=== PATIENT | male | born 1975 | race Two or more races ===

== ENCOUNTER 2019-10-09 11:44 | Inpatient (IN) | payer SELFPAY ==
[~2019-10-09] VITALS: Ht 182.9 cm; Wt 85.5 kg
[2019-10-09] MEDS ORDERED: SODIUM CHLORIDE 0.9% 1,000 ML IV ONE ×2 (12:23→16:15)
[2019-10-09] MEDS ORDERED: dilTIAZem 25 MG/5 ML VIAL IV ONE ×2 (12:27→12:30)
[2019-10-09] MEDS ORDERED: THIAMINE 100mg/ml INJ (200mg/2ml VIAL) IV ONE (12:30)
[2019-10-09] MEDS ORDERED: ASPirin 81 mg TAB PO ONE (12:30)
[2019-10-09] MEDS ORDERED: dilTIAZem 125mg/125ml BAG KIT 125 ML IV ONE (12:30)
[2019-10-09] MEDS ORDERED: LORazepam 2MG/ML-1ML VIAL ONE (12:33)
[2019-10-09] MEDS ORDERED: LORazepam 2MG/ML-1ML VIAL IV ONE (12:45)
[2019-10-09 13:15] LABS: Basophils # (auto) 0 10 ^3/uL (0-0.2); Basophils % (auto) 0.2 % (0.0-2.0); Lymphocytes # (auto) 2.5 10 ^3/uL (0.4-5.4); Monocytes # (auto) 0.9 10 ^3/uL (0-1.3); Nucleated Red Blood Cells % 0.1 %; Red Blood Cells 4.63 10^6/uL (4.5-5.90); White Blood Cell 7.1 10^3/uL (4.4-10.8)
[2019-10-09 13:18] LABS: Eosinophils # (auto) 0.2 10 ^3/uL (0-0.8); Eosinophils % (auto) 2.2 % (0.0-7.0); Hematocrit 37.7 % (41.0-53.0); Hemoglobin 12.3 g/dL (13.5-17.5); Lymphocytes % (auto) 35.8 % (10.0-50.0); Mean Corpuscular Hemoglobin 26.6 pg (28.0-32.0); Mean Corpuscular Hgb Conc. 32.7 g/dL (32.0-36.0); Mean Corpuscular Volume 81.5 fL (80.0-100.0); Monocytes % (auto) 12.6 % (0.0-12.0); Neutrophils # (auto) 3.5 10 ^3/uL (1.6-8.6); Neutrophils % (auto) 49.2 % (37.0-80.0); Platelet Count (auto) 191 10^3/uL (140-450); Red Cell Distribution Width 15.8 % (11.8-14.3)
[2019-10-09 13:34] LABS: INR 1.24 (0.9-1.15); Partial Thromboplastin Time 28.5 sec (23.0-31.2)
[2019-10-09 13:35] LABS: Albumin 3.4 g/dL (3.4-5.0); Anion Gap 10 (5-15); Blood Urea Nitrogen 16 mg/dL (7-18); Calcium 8.5 mg/dL (8.5-10.1); Carbon Dioxide 20 mmol/L (21-32); Chloride 110 mmol/L (98-107); GFR African American 136 mL/min; GFR Non-African American 112 mL/min; Glucose 158 mg/dL (74-106); Potassium 3.5 mmol/L (3.5-5.1); Sodium 140 mmol/L (136-145)
[2019-10-09 13:49] LABS: Alanine Aminotransferase 31 U/L (16-61); Alkaline Phosphatase 165 U/L (45-117); Aspartate Aminotransferase 30 U/L (15-37); Bilirubin, Total 1.9 mg/dL (0.2-1.0)
[2019-10-09] MEDS ORDERED: MORPHINE SULF INJ 2 MG/ML SYRINGE 1ML IV PRN ×3 (15:15→16:30)
[2019-10-09] MEDS ORDERED: NITROGLYCERIN 0.4 MG SL TAB SL PRN ×2 (15:15→16:30)
[2019-10-09] MEDS ORDERED: METOPROLOL TARTRATE 1MG/1ML-5ML VIAL IV ONE ×2 (15:37→15:45)
[2019-10-09] MEDS ORDERED: PROPRANOLOL HCL 20 MG TAB ONE (15:37)
[2019-10-09] MEDS ORDERED: PROPRANOLOL HCL 20 MG TAB PO ONE ×2 (15:45)
[2019-10-09] MEDS ORDERED: ADENOSINE 6 MG/2 ML INJ IV ONE ×2 (15:45)
[2019-10-09] MEDS ORDERED: HYDROCORTISONE SOD SUCC 100 MG/2ML INJ VIAL IV ONE (16:30)
[2019-10-09] MEDS ORDERED: ONDANSETRON HCL 4 MG/2 ML VIAL IV PRN (16:30)
[2019-10-09] MEDS ORDERED: methIMAzole 5 MG TAB PO ONE (16:30)
[2019-10-09] MEDS ORDERED: CHOLESTYRAMINE 4 GM POWDER PO ONE (16:30)
[2019-10-09] MEDS ORDERED: HYDROcodone-ACET 5/325MG TAB PO PRN (16:30)
[2019-10-09] MEDS ORDERED: ACETAMINOPHEN 325 MG TAB PO PRN (16:30)
[2019-10-09] MEDS ORDERED: ALUM & MAG HYDROX-SIMETH LIQ(MAALOX) 30 ML PO PRN (16:30)
[2019-10-09] MEDS ORDERED: DOCUSATE SOD 100 MG CAP PO PRN (16:30)
[2019-10-09] MEDS ORDERED: LORazepam 0.5 MG TAB PO PRN (16:30)
[2019-10-09 16:49] LABS: Cholesterol 74 mg/dL (< 200); Triglycerides 52 mg/dL (< 150)
[2019-10-09 16:52] LABS: HDL Cholesterol 35 mg/dL (40-59); LDL Cholesterol 39 mg/dL (< 100)
[2019-10-09] MEDS: SODIUM CHLORIDE 0.9% 1,000 ML IV SCH (17:49)
[2019-10-09 19:00] LABS: Urine Bacteria NONE SEEN /hpf (None Seen); Urine Blood Negative /uL (Negative); Urine Hyaline Cast FEW /lpf (0 - 2); Urine Mucus FEW (None Seen); Urine Specific Gravity 1.026 (1.001-1.035); Urine WBC 18 /hpf (0 - 3)
[2019-10-09 19:07] LABS: Alcohol, Urine < 3.0 mg/dL (0-10); Amphetamine Screen, Urine NEGATIVE (NEGATIVE); Barbiturate Scree,Urine NEGATIVE (NEGATIVE); Benzodiazephine Screen, Urine NEGATIVE (NEGATIVE); Cannabinoid Screen, Urine POSITIVE (NEGATIVE); Cocaine Screen, Urine NEGATIVE (NEGATIVE); Phencyclidine Screen, Urine NEGATIVE (NEGATIVE)
[2019-10-09 19:14] LABS: Opiate Scree,Urine NEGATIVE (NEGATIVE)
[2019-10-09 20:43] VITALS: BP 135/86
--- NOTE | 2019-10-09 20:45 | NUR ---
Telemetry admit from ER CHAKA ARGUETA admitted to Telemetry unit after SBAR received. Patient oriented to Audrey Jesus RN primary RN, unit, room, bed, and unit policies regarding patient care and visiting hours. Patient now on continuous telemetry monitoring, tele box # [id number] and telemetry reading on arrival to unit is Afib. Patient placed on bedside oxygen at 2 Lpm/NC, weighed by bedscale and encouraged to call if they need something. All questions and concerns addressed, patient verbalized understanding, will continue to monitor Note: []
[2019-10-09] MEDS: HYDROCORTISONE SOD SUCC 100 MG/2ML INJ VIAL IV SCH (21:59)
[2019-10-09 22:00] VITALS: BP 135/86
[2019-10-09] MEDS: CHOLESTYRAMINE 4 GM POWDER PO SCH (22:00)
--- NOTE | 2019-10-10 00:30 | NUR ---
Patient sleeping at this time, respirations even and unlabored. Endorsed care to ROBERTO Garcia
--- NOTE | 2019-10-10 00:38 | NUR ---
Received report from Danay to assume care.
--- NOTE | 2019-10-10 05:52 | NUR ---
EKG DONE ORDERED, RESULT IN THE CHART.
[2019-10-10 05:59] VITALS: BP 131/98
[2019-10-10] MEDS: CHOLESTYRAMINE 4 GM POWDER PO SCH ×4 (06:15→22:06)
[2019-10-10] MEDS: HYDROCORTISONE SOD SUCC 100 MG/2ML INJ VIAL IV SCH ×3 (06:15→22:08)
[2019-10-10] MEDS: SODIUM CHLORIDE 0.9% 1,000 ML IV SCH (06:16)
--- NOTE | 2019-10-10 06:30 | NUR ---
MD Called/paged José Blackwood. called re:heart rate of patient always above 120, it goes down below 120, then goes up to 130S. . Waiting for call back. Continue care.
--- NOTE | 2019-10-10 07:00 | NUR ---
Care report given to Karis Barrientos and told to follow-up to the hospital regarding heart rate always above 120.
[2019-10-10 07:14] LABS: Basophils # (auto) 0 10 ^3/uL (0-0.2); Basophils % (auto) 0.1 % (0.0-2.0); Eosinophils # (auto) 0 10 ^3/uL (0-0.8); Eosinophils % (auto) 0.1 % (0.0-7.0); Hematocrit 36.2 % (41.0-53.0); Hemoglobin 11.9 g/dL (13.5-17.5); Lymphocytes # (auto) 1.4 10 ^3/uL (0.4-5.4); Lymphocytes % (auto) 27.2 % (10.0-50.0); Mean Corpuscular Hemoglobin 27.1 pg (28.0-32.0); Mean Corpuscular Volume 82.1 fL (80.0-100.0); Monocytes # (auto) 0.3 10 ^3/uL (0-1.3); Monocytes % (auto) 6.6 % (0.0-12.0); Neutrophils # (auto) 3.4 10 ^3/uL (1.6-8.6); Nucleated Red Blood Cells % 0.1 %; Platelet Count (auto) 182 10^3/uL (140-450); Red Blood Cells 4.41 10^6/uL (4.5-5.90); Red Cell Distribution Width 16.2 % (11.8-14.3); White Blood Cell 5.2 10^3/uL (4.4-10.8)
[2019-10-10 07:35] LABS: INR 1.3 (0.9-1.15)
--- NOTE | 2019-10-10 07:35 | NUR ---
Opening Note Received report from assembler 1st shift RN. Patient is awake, alert and oriented x4. Patient is on room air, respirations even and unlabored. Patient denies pain at this time. Reviewed plan of care with patient, patient verbalized understanding. Bed in low and locked position, call light within reach. Will continue to monitor Q1 hour and PRN.
[2019-10-10 07:54] LABS: Potassium 4.1 mmol/L (3.5-5.1)
[2019-10-10] MEDS: methIMAzole 5 MG TAB PO SCH (08:02)
[2019-10-10 08:06] LABS: BUN/Creatinine Ratio 28.2; Bilirubin, Total 1.2 mg/dL (0.2-1.0); Calcium 8.1 mg/dL (8.5-10.1); Magnesium 2.1 mg/dL (1.6-2.6); Total Protein 6.3 g/dL (6.4-8.2)
[2019-10-10 09:00] VITALS: BP 142/90
--- NOTE | 2019-10-10 09:00 | NUR ---
JORGE L Andrade at station DIVISIONAL HUMAN RESOURCES DIRECTOR updated on patients increased heart rate. Will continue to monitor Q1 hour and PRN.
[2019-10-10] MEDS ORDERED: ATENOLOL 50 MG TAB PO SCH (10:00)
[2019-10-10] MEDS ORDERED: DIGOXIN (250MCG/ML) 2 ML AMPULE IV ONE (10:30)
[2019-10-10] MEDS ORDERED: ENOXAPARIN SOD 100 MG/1 ML SYRINGE SC ONE (10:45)
[2019-10-10] MEDS ORDERED: FUROSEMIDE 40 MG/4 ML VIAL IV ONE (11:00)
--- NOTE | 2019-10-10 11:24 | NUR ---
1120 10/10/19 - Faxed to [facility] at [phone] face sheet, order for life vest, H/P, ECHO results, cardiology consult. Pending review, approval and delivery of DME.
[2019-10-10 13:00] VITALS: BP 135/88
--- NOTE | 2019-10-10 15:00 | NUR ---
IV Insertion IV access obtained, via clean sterile technique by inserting 20 gauge catheter to left forearm, IV secured. Patient tolerated well. Will continue to monitor Q1 hour and PRN.
[2019-10-10 17:04] VITALS: BP 132/79
[2019-10-10] MEDS: FUROSEMIDE 40 MG/4 ML VIAL IV SCH (18:37)
--- NOTE | 2019-10-10 19:17 | NUR ---
Closing Note Report given to retail shift manager RN. No signs or symptoms of distress noted at this time.
[2019-10-10] MEDS ORDERED: IOHEXOL 350 MG/ML 100ML IJ ONE ×2 (20:59→21:09)
--- NOTE | 2019-10-10 21:00 | NUR ---
Came back from Ct angio Patient tolerated well. back to his room.
--- NOTE | 2019-10-10 21:00 | NUR ---
Ct Angio of Chest Went down with patient. Patient feeling well. Denies any pain and discomfort. Saline flush both IV sites. On monitoring
[2019-10-10 22:00] VITALS: BP_SYST 108; BP_SYST 137; BP_DIAS 67; BP_DIAS 95
[2019-10-10] MEDS: ENOXAPARIN SOD 100 MG/1 ML SYRINGE SC SCH (22:05)
[2019-10-10] MEDS: SACUBITRIL-VALSARTAN 24mg/26mg TAB PO SCH (22:06)
[2019-10-10] MEDS: CARVEDILOL 12.5 MG TAB PO SCH (22:07)
--- NOTE | 2019-10-10 22:15 | NUR ---
Report Given Report given to ROBERTO Montez. Patient no complains no signs of distress noted.
[2019-10-11 05:00] VITALS: BP 126/77
[2019-10-11] MEDS: CHOLESTYRAMINE 4 GM POWDER PO SCH ×4 (05:46→23:04)
[2019-10-11] MEDS: HYDROCORTISONE SOD SUCC 100 MG/2ML INJ VIAL IV SCH ×3 (05:46→23:03)
[2019-10-11] MEDS: FUROSEMIDE 40 MG/4 ML VIAL IV SCH ×2 (05:49→17:38)
--- NOTE | 2019-10-11 07:30 | NUR ---
Opening Note Received report from shift engineer RN. Patient is awake, alert and oriented x4. Patient is on room air, respirations even and unlabored. Patient denies pain at this time. Reviewed plan of care with patient, patient verbalized understanding. Bed in low and locked position, call light within reach. Will continue to monitor Q1 hour and PRN.
[2019-10-11 09:00] VITALS: BP 128/72
[2019-10-11] MEDS: CARVEDILOL 12.5 MG TAB PO SCH ×2 (11:05→23:05)
[2019-10-11] MEDS: SACUBITRIL-VALSARTAN 24mg/26mg TAB PO SCH ×2 (11:06→23:04)
[2019-10-11] MEDS: ENOXAPARIN SOD 100 MG/1 ML SYRINGE SC SCH (11:06)
--- NOTE | 2019-10-11 12:15 | NUR ---
Dr. Blaine Ley at bedside MD at bedside discussing plan of care with patient and this RN. New orders received. Will continue to monitor Q1 hour and PRN.
[2019-10-11 13:00] VITALS: BP 110/68
--- NOTE | 2019-10-11 13:32 | NUR ---
4420 10/11/19 - Contacted [employer] at [phone] ext [phone], Spoke with coordinator Hedy regarding update on pending life vest. Per Hedy she spoke with patient today and will f/u with him on tomorrow.
[2019-10-11] MEDS: methIMAzole 5 MG TAB PO SCH (14:15)
[2019-10-11] MEDS ORDERED: AMIODARONE HCL 150 MG in D5W 5% 100 ML IV ONE (15:15)
[2019-10-11 17:10] VITALS: BP 115/82
--- NOTE | 2019-10-11 17:35 | NUR ---
Amiodarone administered Medication administered per orders, army officer Laura at bedside. Vitals signs assessed prior to administration, blood pressure 129/76, heart rate 112. Will remain at patients bedside and continue to monitor.
--- NOTE | 2019-10-11 17:46 | NUR ---
Amiodarone infusion completed Medication infusion completed per orders. Vital signs reassessed, blood pressure 124/81, heart rate 102. Patient tolerated well. Will continue to monitor Q1 hour and PRN.
--- NOTE | 2019-10-11 19:15 | NUR ---
Closing Note Report given to retail shift leader RN. No signs or symptoms of distress noted at this time.
[2019-10-11 22:00] VITALS: BP 131/72
[2019-10-11] MEDS: APIXABAN 5 MG TAB PO SCH (23:04)
[2019-10-12 05:00] VITALS: BP 127/74
[2019-10-12] MEDS: HYDROCORTISONE SOD SUCC 100 MG/2ML INJ VIAL IV SCH ×2 (06:39→14:00)
[2019-10-12] MEDS: FUROSEMIDE 40 MG/4 ML VIAL IV SCH (06:39)
[2019-10-12] MEDS: CHOLESTYRAMINE 4 GM POWDER PO SCH ×2 (06:39→11:51)
--- NOTE | 2019-10-12 08:00 | NUR ---
Opening Shift Note Assumed care of patient, awake, alert, and oriented. No S/S of distress/SOB or pain. Bed in lowest/locked position, bed rails up x2, call light within reach. Instructed on POC and to call for assist PRN. Will continue to monitor for changes Q1hr and PRN.
[2019-10-12] MEDS: methIMAzole 5 MG TAB PO SCH (08:30)
[2019-10-12] MEDS: SACUBITRIL-VALSARTAN 24mg/26mg TAB PO SCH (08:30)
[2019-10-12] MEDS: APIXABAN 5 MG TAB PO SCH (08:30)
[2019-10-12] MEDS: CARVEDILOL 12.5 MG TAB PO SCH (08:31)
[2019-10-12 09:00] VITALS: BP 140/81
--- NOTE | 2019-10-12 11:30 | NUR ---
MD ROUNDS DR Blaine GÓMEZ AT BEDSIDE DISCUSSING POC WITH PATIENT. NO NEW ORDERS RECEIVED AT THIS TIME. WILL CONTINUE TO MONITOR
--- NOTE | 2019-10-12 11:36 | NUR ---
CASE MANAGEMENT SPOKE WITH SAM RE: PATIENT [employer] VEST. PER TERESO SIMS FROM [employer] HAS BEEN IN CONTACT WITH PATIENT. WILL CONTINUE TO MONITOR
--- NOTE | 2019-10-12 12:50 | NUR ---
1245 10/12/19 - Contacted [employer] sales representative Octavio via email who provided the following update Barbie will be at [facility] around 1330 to fit patient for life vest.
[2019-10-12 13:00] VITALS: BP 128/73
--- NOTE | 2019-10-12 15:24 | NUR ---
Discharge instructions given as ordered. Encourage to follow up with PMD as instructed. All questions and concerns addressed. Patient verbalized understanding. IV removed with catheter intact, pressure dressing applied. Telemetry unit returned to ICU. Patient taken to vehicle via wheelchair with all personal belongings, accompanied by staff. No distress noted at time of departure.
[2019-10-18] MEDS ORDERED: METO-6 PO (11:45)
[2019-10-18] MEDS ORDERED: PANT40TA2 PO (11:45)
[2019-10-18] MEDS ORDERED: SACU1TAB PO (11:45)
[2019-10-18] MEDS ORDERED: METH5TAB68 PO (11:45)
[2019-10-18] MEDS ORDERED: APIX5TAB PO (11:45)
[2019-10-18] MEDS ORDERED: FURO1TAB33 PO (11:45)
== END 2019-10-12 15:25 | disposition home or self-care (01) | DRG 643 ==
LOC: ER 11:44 → TELE 11:54 → TELE-WESTW 20:36
PROVIDERS: ADMIT Hospitalist; ATTEND Family Medicine
DX: E06.9 Thyroiditis, unspecified (principal); I50.21 Acute systolic (congestive) heart failure; J18.9 Pneumonia, unspecified organism; I47.1 Supraventricular tachycardia; D68.9 Coagulation defect, unspecified; N39.0 Urinary tract infection, site not specified; I42.0 Dilated cardiomyopathy; E05.01 Thyrotoxicosis with diffuse goiter with thyrotoxic crisis or storm; I11.0 Hypertensive heart disease with heart failure; I48.91 Unspecified atrial fibrillation; F12.90 Cannabis use, unspecified, uncomplicated; F41.9 Anxiety disorder, unspecified; D64.9 Anemia, unspecified; Z80.1 Family history of malignant neoplasm of trachea, bronchus and lung; Z80.8 Family history of malignant neoplasm of other organs or systems; Z82.49 Family history of ischemic heart disease and other diseases of the circulatory system; Z83.3 Family history of diabetes mellitus; Z72.89 Other problems related to lifestyle; Z79.899 Other long term (current) drug therapy
CPT/HCPCS: 36415; 71045; 71275; 76536; 80053; 80061; 80307; 81001; 83036; 83735; 83880; 84100; 84439; 84443; 84484; 85025; 85379; 85610; 85730; 87086; 93005; 93306; 93970; 99291; G0378; J0153; J7060

== ENCOUNTER 2019-10-13 11:35 | Inpatient (IN) | payer MEDICAID, OTHER ==
[~2019-10-13] VITALS: Ht 182.9 cm; Wt 77.0 kg
[2019-10-13] MEDS ORDERED: DIGOXIN (250MCG/ML) 2 ML AMPULE IV ONE (12:00)
[2019-10-13] MEDS ORDERED: dilTIAZem 125mg/125ml BAG KIT 125 ML IV ONE (12:00)
[2019-10-13] MEDS ORDERED: dilTIAZem 25 MG/5 ML VIAL IV ONE (12:00)
[2019-10-13 13:00] LABS: Basophils # (auto) 0 10 ^3/uL (0-0.2); Eosinophils # (auto) 0.3 10 ^3/uL (0-0.8); Monocytes # (auto) 0.8 10 ^3/uL (0-1.3); Neutrophils # (auto) 4.8 10 ^3/uL (1.6-8.6); Nucleated Red Blood Cells % 0.1 %; White Blood Cell 9.2 10^3/uL (4.4-10.8)
[2019-10-13 13:01] LABS: Basophils % (auto) 0.3 % (0.0-2.0); Hematocrit 44.7 % (41.0-53.0); Hemoglobin 14.8 g/dL (13.5-17.5); Lymphocytes # (auto) 3.2 10 ^3/uL (0.4-5.4); Lymphocytes % (auto) 35.3 % (10.0-50.0); Mean Corpuscular Hemoglobin 26.8 pg (28.0-32.0); Mean Corpuscular Hgb Conc. 33.2 g/dL (32.0-36.0); Mean Corpuscular Volume 80.7 fL (80.0-100.0); Monocytes % (auto) 8.9 % (0.0-12.0); Neutrophils % (auto) 52.5 % (37.0-80.0); Platelet Count (auto) 205 10^3/uL (140-450); Red Blood Cells 5.54 10^6/uL (4.5-5.90); Red Cell Distribution Width 15.5 % (11.8-14.3)
[2019-10-13] MEDS ORDERED: ACETAMINOPHEN 500 MG TAB PO PRN (13:15)
[2019-10-13] MEDS ORDERED: DOCUSATE CALCIUM 240 MG CAP PO PRN (13:15)
[2019-10-13] MEDS ORDERED: SODIUM CHLORIDE 0.9% 1,000 ML IV SCH (13:15)
[2019-10-13] MEDS ORDERED: NITROGLYCERIN 0.4 MG SL TAB SL PRN (13:15)
[2019-10-13] MEDS ORDERED: MORPHINE SULF INJ 2 MG/ML SYRINGE 1ML IV PRN (13:15)
[2019-10-13] MEDS ORDERED: LABETALOL HCL 5 MG/ML 4ML SYRINGE IV PRN (13:15)
[2019-10-13 13:20] LABS: Albumin 3.5 g/dL (3.4-5.0); Anion Gap 7 (5-15); Blood Urea Nitrogen 19 mg/dL (7-18); Calcium 8.5 mg/dL (8.5-10.1); Carbon Dioxide 28 mmol/L (21-32); Chloride 105 mmol/L (98-107); Glucose 109 mg/dL (74-106); Sodium 140 mmol/L (136-145)
[2019-10-13 13:25] LABS: Alanine Aminotransferase 64 U/L (16-61); Alkaline Phosphatase 132 U/L (45-117); Aspartate Aminotransferase 70 U/L (15-37); BUN/Creatinine Ratio 24.4; Bilirubin, Total 1.4 mg/dL (0.2-1.0); GFR African American 140 mL/min; GFR Non-African American 115 mL/min; Total Protein 7.2 g/dL (6.4-8.2)
[2019-10-13] MEDS: CLINDAMYCIN 300MG IV 50 ML IV SCH ×2 (14:17→22:14)
[2019-10-13] MEDS ORDERED: POTASSIUM CHL 20 Meq TABLET PO ONE (17:00)
[2019-10-13] MEDS ORDERED: FUROSEMIDE 20 MG/2 ML VIAL IV ONE (17:00)
[2019-10-13] MEDS: CARVEDILOL 3.125 MG TAB PO SCH (22:15)
[2019-10-13] MEDS: APIXABAN 5 MG TAB PO SCH (22:16)
[2019-10-13] MEDS: SACUBITRIL-VALSARTAN 24mg/26mg TAB PO SCH (22:20)
[2019-10-14] MEDS: FUROSEMIDE 20 MG/2 ML VIAL IV SCH ×2 (06:00→18:23)
[2019-10-14] MEDS: CLINDAMYCIN 300MG IV 50 ML IV SCH ×2 (06:29→14:10)
[2019-10-14 07:50] LABS: Basophils # (auto) 0 10 ^3/uL (0-0.2); Basophils % (auto) 0.2 % (0.0-2.0); Eosinophils # (auto) 0.4 10 ^3/uL (0-0.8); Eosinophils % (auto) 4.7 % (0.0-7.0); Hematocrit 42.5 % (41.0-53.0); Hemoglobin 14.3 g/dL (13.5-17.5); Lymphocytes # (auto) 3.1 10 ^3/uL (0.4-5.4); Lymphocytes % (auto) 40.5 % (10.0-50.0); Mean Corpuscular Hemoglobin 27.1 pg (28.0-32.0); Mean Corpuscular Hgb Conc. 33.6 g/dL (32.0-36.0); Mean Corpuscular Volume 80.7 fL (80.0-100.0); Monocytes # (auto) 0.5 10 ^3/uL (0-1.3); Monocytes % (auto) 6.8 % (0.0-12.0); Neutrophils # (auto) 3.7 10 ^3/uL (1.6-8.6); Neutrophils % (auto) 47.8 % (37.0-80.0); Nucleated Red Blood Cells % 0.3 %; Platelet Count (auto) 172 10^3/uL (140-450); Red Blood Cells 5.27 10^6/uL (4.5-5.90); Red Cell Distribution Width 15.8 % (11.8-14.3); White Blood Cell 7.7 10^3/uL (4.4-10.8)
[2019-10-14 08:06] LABS: Albumin 3.3 g/dL (3.4-5.0); Calcium 8.6 mg/dL (8.5-10.1); Potassium 3.5 mmol/L (3.5-5.1)
[2019-10-14 08:12] LABS: BUN/Creatinine Ratio 23.3; Bilirubin, Total 1.4 mg/dL (0.2-1.0); Total Protein 6.8 g/dL (6.4-8.2)
[2019-10-14] MEDS ORDERED: ENOXAPARIN SOD 40 MG/0.4 ML SYRINGE SC SCH (10:00)
[2019-10-14] MEDS: methIMAzole 5 MG TAB PO SCH (10:30)
[2019-10-14] MEDS: APIXABAN 5 MG TAB PO SCH ×2 (10:30→22:00)
[2019-10-14] MEDS: CARVEDILOL 3.125 MG TAB PO SCH ×2 (10:30→21:26)
[2019-10-14] MEDS: SACUBITRIL-VALSARTAN 24mg/26mg TAB PO SCH ×2 (10:30→21:24)
[2019-10-14] MEDS: PANTOPRAZOLE 40 MG/10 ML VIAL INJ IV SCH (10:30)
[2019-10-14 10:58] LABS: Alcohol, Urine < 3.0 mg/dL (0-10); Amphetamine Screen, Urine NEGATIVE (NEGATIVE); Barbiturate Scree,Urine NEGATIVE (NEGATIVE); Benzodiazephine Screen, Urine NEGATIVE (NEGATIVE); Cannabinoid Screen, Urine POSITIVE (NEGATIVE); Cocaine Screen, Urine NEGATIVE (NEGATIVE); Opiate Scree,Urine NEGATIVE (NEGATIVE); Phencyclidine Screen, Urine NEGATIVE (NEGATIVE)
[2019-10-14 11:51] LABS: Urine Bacteria NONE SEEN /hpf (None Seen); Urine Blood Negative /uL (Negative); Urine Specific Gravity 1.006 (1.001-1.035); Urine WBC <1 /hpf (0 - 3)
[2019-10-14 13:52] VITALS: BP 119/72
[2019-10-14 16:00] VITALS: BP 107/68
[2019-10-14 16:20] VITALS: BP 107/68
[2019-10-14] MEDS ORDERED: APIX5TAB PO (16:39)
[2019-10-14] MEDS ORDERED: SACU1TAB PO (16:39)
[2019-10-14] MEDS ORDERED: POTA10TA51 PO (16:39)
[2019-10-14] MEDS ORDERED: FURO1TAB31 PO (16:39)
[2019-10-14] MEDS ORDERED: METH5TAB68 PO (16:39)
[2019-10-14] MEDS ORDERED: CARV25TA PO (16:39)
[2019-10-14 22:00] VITALS: BP 121/69
[2019-10-15 05:10] VITALS: BP 118/63
[2019-10-15] MEDS: FUROSEMIDE 20 MG/2 ML VIAL IV SCH ×2 (05:37→17:42)
[2019-10-15 08:41] LABS: Albumin 3.4 g/dL (3.4-5.0); Magnesium 1.9 mg/dL (1.6-2.6)
[2019-10-15 08:45] LABS: Bilirubin, Direct 0.5 mg/dL (0-0.2); Bilirubin, Total 1.1 mg/dL (0.2-1.0); Total Protein 6.9 g/dL (6.4-8.2)
[2019-10-15 09:00] VITALS: BP 112/65
[2019-10-15] MEDS: methIMAzole 5 MG TAB PO SCH (09:32)
[2019-10-15] MEDS: SACUBITRIL-VALSARTAN 24mg/26mg TAB PO SCH ×2 (09:32→21:54)
[2019-10-15] MEDS: CARVEDILOL 3.125 MG TAB PO SCH ×2 (09:32→21:54)
[2019-10-15] MEDS: APIXABAN 5 MG TAB PO SCH ×2 (09:32→21:54)
[2019-10-15] MEDS: PANTOPRAZOLE 40 MG/10 ML VIAL INJ IV SCH (09:33)
[2019-10-15 13:00] VITALS: BP 122/70
[2019-10-15] MEDS ORDERED: MAGNESIUM SULFATE 1GM/100ML 100 ML IV ONE (16:15)
[2019-10-15 17:00] VITALS: BP 122/87
[2019-10-15] MEDS ORDERED: METOPROLOL TARTRATE 1MG/1ML-5ML VIAL IV SCH (20:45)
[2019-10-15 22:00] VITALS: BP 122/78
[2019-10-16 05:00] VITALS: BP 103/66
[2019-10-16] MEDS: FUROSEMIDE 20 MG/2 ML VIAL IV SCH ×2 (05:46→17:56)
[2019-10-16 07:24] LABS: Albumin 3.6 g/dL (3.4-5.0); Magnesium 2.2 mg/dL (1.6-2.6)
[2019-10-16 07:29] LABS: Bilirubin, Direct 0.5 mg/dL (0-0.2); Bilirubin, Total 0.9 mg/dL (0.2-1.0); Total Protein 7.6 g/dL (6.4-8.2)
[2019-10-16 09:00] VITALS: BP 110/84
[2019-10-16] MEDS: PANTOPRAZOLE 40 MG/10 ML VIAL INJ IV SCH (09:17)
[2019-10-16] MEDS: CARVEDILOL 3.125 MG TAB PO SCH (09:17)
[2019-10-16] MEDS: SACUBITRIL-VALSARTAN 24mg/26mg TAB PO SCH ×2 (09:18→13:01)
[2019-10-16] MEDS: methIMAzole 5 MG TAB PO SCH (09:18)
[2019-10-16] MEDS: APIXABAN 5 MG TAB PO SCH ×2 (09:18→21:14)
[2019-10-16] MEDS ORDERED: METOPROLOL TARTRATE 1MG/1ML-5ML VIAL IV SCH (09:30)
[2019-10-16] MEDS ORDERED: METOPROLOL TARTRATE 1MG/1ML-5ML VIAL IV PRN (09:30)
[2019-10-16] MEDS ORDERED: METOPROLOL SUCCINATE XL 50 MG TAB PO ONE (09:45)
[2019-10-16] MEDS ORDERED: METOPROLOL SUCCINATE XL 50 MG TAB PO SCH (10:20)
[2019-10-16 13:00] VITALS: BP 110/70
[2019-10-16] MEDS: METOPROLOL SUCCINATE XL 50 MG TAB PO SCH ×2 (13:21→21:14)
[2019-10-16 17:00] VITALS: BP 121/71
[2019-10-16 22:00] VITALS: BP 107/60
[2019-10-17 05:06] VITALS: BP 115/68
[2019-10-17] MEDS: FUROSEMIDE 20 MG/2 ML VIAL IV SCH ×2 (05:40→18:15)
[2019-10-17 06:07] LABS: INR 1.08 (0.9-1.15); Partial Thromboplastin Time 28.1 sec (23.0-31.2)
[2019-10-17 06:17] LABS: Albumin 3.6 g/dL (3.4-5.0); Calcium 9.4 mg/dL (8.5-10.1)
[2019-10-17 06:23] LABS: BUN/Creatinine Ratio 25.2; Bilirubin, Total 0.8 mg/dL (0.2-1.0); Total Protein 7.6 g/dL (6.4-8.2)
[2019-10-17 09:00] VITALS: BP 111/67
[2019-10-17] MEDS: PANTOPRAZOLE 40 MG/10 ML VIAL INJ IV SCH (09:09)
[2019-10-17] MEDS: SACUBITRIL-VALSARTAN 24mg/26mg TAB PO SCH ×2 (09:10→22:26)
[2019-10-17] MEDS: methIMAzole 5 MG TAB PO SCH (09:10)
[2019-10-17] MEDS: METOPROLOL SUCCINATE XL 50 MG TAB PO SCH ×2 (09:10→22:26)
[2019-10-17] MEDS: APIXABAN 5 MG TAB PO SCH ×2 (10:00→22:26)
[2019-10-17] MEDS ORDERED: IOHEXOL 350 MG/ML 100ML IJ ONE (12:30)
[2019-10-17] MEDS ORDERED: LIDOCAINE 2%HCL (LOCAL ANESTH.) INJ 20ML MDV ONE (12:30)
[2019-10-17 12:56] VITALS: BP 107/66
[2019-10-17 13:23] LABS: Hepatitis B Surface Antibody Negative
[2019-10-17 14:01] LABS: Hepatitis A Total Antibody Positive
[2019-10-17] MEDS ORDERED: ANGIOMAX 250 MG VIAL IV ONE (14:02)
[2019-10-17] MEDS ORDERED: fentaNYL CITRATE 100 MCG/2 ML VL ONE (14:02)
[2019-10-17] MEDS ORDERED: MIDAZOLAM HCL 1MG/1ML-2 ML VIAL ONE ×2 (14:03→14:26)
[2019-10-17] MEDS ORDERED: SODIUM CHL 0.9% 0 ML ONE (14:03)
[2019-10-17 14:24] LABS: Hepatitis B Core Total AB Negative; Hepatitis B Surface Antigen Negative (Negative); Hepatitis C Antibody Negative (Negative)
[2019-10-17] MEDS ORDERED: diphenhdrAMINE HCL 50 MG/1 ML VL ONE (14:26)
[2019-10-17] MEDS ORDERED: SODIUM CHLORIDE 0.9% 1,000 ML IV SCH (14:49)
[2019-10-17 16:54] VITALS: BP 119/66
[2019-10-17 17:00] VITALS: BP 95/69
[2019-10-17 22:00] VITALS: BP 106/59
[2019-10-18 05:12] VITALS: BP 89/60
[2019-10-18] MEDS: FUROSEMIDE 20 MG/2 ML VIAL IV SCH (06:55)
[2019-10-18 07:19] LABS: Potassium 4.6 mmol/L (3.5-5.1)
[2019-10-18 07:27] LABS: Albumin 3.5 g/dL (3.4-5.0); BUN/Creatinine Ratio 31.4; Calcium 8.9 mg/dL (8.5-10.1); Total Protein 7.2 g/dL (6.4-8.2)
[2019-10-18 09:00] VITALS: BP 116/69
[2019-10-18] MEDS ORDERED: METOPROLOL SUCCINATE XL 50 MG TAB PO SCH (10:00)
[2019-10-18] MEDS: methIMAzole 5 MG TAB PO SCH (10:36)
[2019-10-18] MEDS: SACUBITRIL-VALSARTAN 24mg/26mg TAB PO SCH (10:36)
[2019-10-18] MEDS: PANTOPRAZOLE 40 MG/10 ML VIAL INJ IV SCH (10:36)
[2019-10-18] MEDS: APIXABAN 5 MG TAB PO SCH (10:36)
[2019-10-18] MEDS ORDERED: FURO1TAB33 PO (11:45)
[2019-10-18] MEDS ORDERED: APIX5TAB PO (11:45)
[2019-10-18] MEDS ORDERED: PANT40TA2 PO (11:45)
[2019-10-18] MEDS ORDERED: METO-6 PO (11:45)
[2019-10-18] MEDS ORDERED: SACU1TAB PO (11:45)
[2019-10-18] MEDS ORDERED: METH5TAB68 PO (11:45)
[2019-10-18 12:55] VITALS: BP 115/66
[2019-10-18 13:38] VITALS: BP 116/69
== END 2019-10-18 15:42 | disposition home or self-care (01) | DRG 192 ==
LOC: ER 11:35 → TELE 11:36 → TELE-WESTW 10-14 14:01
PROVIDERS: ATTEND Internal Medicine
PROC: 4A023N7 Measurement of Cardiac Sampling and Pressure, Left Heart, Percutaneous Approach (ICD-10-PCS; principal; 2019-10-17)
PROC: B2111ZZ Fluoroscopy of Multiple Coronary Arteries using Low Osmolar Contrast (ICD-10-PCS; 2019-10-17)
PROC: B2151ZZ Fluoroscopy of Left Heart using Low Osmolar Contrast (ICD-10-PCS; 2019-10-17)
PROC: 5A2204Z Restoration of Cardiac Rhythm, Single (ICD-10-PCS; 2019-10-17)
DX: I48.20 Chronic atrial fibrillation, unspecified (principal); E06.9 Thyroiditis, unspecified; I11.0 Hypertensive heart disease with heart failure; I42.0 Dilated cardiomyopathy; E05.90 Thyrotoxicosis, unspecified without thyrotoxic crisis or storm; E87.6 Hypokalemia; F12.90 Cannabis use, unspecified, uncomplicated; J98.11 Atelectasis; N39.0 Urinary tract infection, site not specified; Z80.1 Family history of malignant neoplasm of trachea, bronchus and lung; Z80.8 Family history of malignant neoplasm of other organs or systems; Z82.49 Family history of ischemic heart disease and other diseases of the circulatory system; Z83.3 Family history of diabetes mellitus; J90 Pleural effusion, not elsewhere classified; R79.89 Other specified abnormal findings of blood chemistry; F10.99 Alcohol use, unspecified with unspecified alcohol-induced disorder; Y90.9 Presence of alcohol in blood, level not specified; I50.22 Chronic systolic (congestive) heart failure
CPT/HCPCS: 36415; 71045; 76705; 80053; 80061; 80076; 80307; 81001; 83735; 83880; 84132; 84443; 84484; 85025; 85610; 85730; 86704; 86706; 86708; 86803; 86850; 86900; 86901; 87081; 87340; 93005; 99152; 99153; 99291; C9113; G0378; J2250; J3490

== ENCOUNTER 2020-07-10 13:58 | Inpatient (IN) | payer MEDICAID ==
[~2020-07-10] VITALS: Ht 180.3 cm; Wt 82.6 kg
[~2020-07-10 13:58] MED LIST: APIX5TAB PO; FURO1TAB33 PO; METH5TAB68 PO; METO-6 PO; PANT40TA2 PO; SACU1TAB PO
[2020-07-10 15:41] LABS: Basophils # (auto) 0 10 ^3/uL (0-0.2); Basophils % (auto) 0.3 % (0.0-2.0); Eosinophils # (auto) 0 10 ^3/uL (0-0.8); Eosinophils % (auto) 0.5 % (0.0-7.0); Hematocrit 41.3 % (41.0-53.0); Hemoglobin 14.8 g/dL (13.5-17.5); Lymphocytes # (auto) 2.1 10 ^3/uL (0.4-5.4); Lymphocytes % (auto) 21.5 % (10.0-50.0); Mean Corpuscular Hgb Conc. 35.8 g/dL (32.0-36.0); Mean Corpuscular Volume 89.5 fL (80.0-100.0); Monocytes # (auto) 0.5 10 ^3/uL (0-1.3); Monocytes % (auto) 5.3 % (0.0-12.0); Neutrophils # (auto) 7.1 10 ^3/uL (1.6-8.6); Neutrophils % (auto) 72.4 % (37.0-80.0); Nucleated Red Blood Cells % 0.1 %; Red Blood Cells 4.62 10^6/uL (4.5-5.90); White Blood Cell 9.8 10^3/uL (4.4-10.8)
[2020-07-10 15:59] LABS: Chloride 106 mmol/L (98-107); Sodium 135 mmol/L (136-145)
[2020-07-10 16:05] LABS: Alanine Aminotransferase 20 U/L (16-61); Albumin 4.3 g/dL (3.4-5.0); Alkaline Phosphatase 72 U/L (45-117); Anion Gap 9 (5-15); Aspartate Aminotransferase 16 U/L (15-37); BUN/Creatinine Ratio 19.4; Blood Urea Nitrogen 20 mg/dL (7-18); Calcium 8.5 mg/dL (8.5-10.1); Carbon Dioxide 20 mmol/L (21-32); GFR African American 101 mL/min; GFR Non-African American 83 mL/min; Glucose 95 mg/dL (74-106); Magnesium 2.1 mg/dL (1.6-2.6); Total Protein 8.2 g/dL (6.4-8.2)
[2020-07-10] MEDS ORDERED: MORPHINE SULFATE INJECTION 2 MG/ML SYRG IV PRN ×2 (16:45)
[2020-07-10] MEDS ORDERED: NITROGLYCERIN 0.4 MG SL TAB SL PRN (16:45)
[2020-07-10] MEDS ORDERED: HYDROcodone-ACET 5/325MG TAB PO PRN (16:45)
[2020-07-10] MEDS ORDERED: ACETAMINOPHEN 500 MG TAB PO PRN (16:45)
[2020-07-10] MEDS ORDERED: ONDANSETRON HCL 4 MG/2 ML VIAL IV PRN (16:45)
[2020-07-10] MEDS: APIXABAN 5 MG TAB PO SCH (22:00)
[2020-07-10] MEDS: METOPROLOL SUCCINATE XL 50 MG TAB PO SCH (22:00)
[2020-07-10 22:47] VITALS: BP 121/68
[2020-07-10 23:07] VITALS: BP 121/68
[2020-07-11] MEDS ORDERED: LISI-275 PO (01:03)
[2020-07-11 05:00] VITALS: BP 115/71
[2020-07-11 08:25] VITALS: BP 110/68
[2020-07-11 09:00] VITALS: BP 110/68
[2020-07-11] MEDS: FAMOTIDINE 20 MG TAB PO SCH (09:19)
[2020-07-11] MEDS: APIXABAN 5 MG TAB PO SCH ×2 (09:19→21:03)
[2020-07-11] MEDS: METOPROLOL SUCCINATE XL 50 MG TAB PO SCH ×2 (09:20→21:03)
[2020-07-11 12:42] VITALS: BP 116/69
[2020-07-11 16:50] VITALS: BP 121/80
[2020-07-11 22:00] VITALS: BP 125/77
[2020-07-12 05:00] VITALS: BP 122/75
[2020-07-12 07:53] VITALS: BP 104/70
[2020-07-12] MEDS: METOPROLOL SUCCINATE XL 50 MG TAB PO SCH (09:26)
[2020-07-12] MEDS: FAMOTIDINE 20 MG TAB PO SCH (09:26)
[2020-07-12] MEDS: APIXABAN 5 MG TAB PO SCH (09:26)
[2020-07-12 12:14] VITALS: BP 118/85
[2020-07-12 13:10] LABS: Urine WBC None Seen /hpf (0 - 3)
[2020-07-12 13:25] LABS: Urine Bacteria NONE SEEN /hpf (None Seen); Urine Blood 1+ /uL (Negative); Urine Specific Gravity 1.012 (1.001-1.035); Urine Sperm PRESENT /hpf (None Seen)
[2020-07-12 13:29] LABS: Amphetamine Screen, Urine NEGATIVE (NEGATIVE); Barbiturate Scree,Urine NEGATIVE (NEGATIVE); Benzodiazephine Screen, Urine NEGATIVE (NEGATIVE); Cannabinoid Screen, Urine POSITIVE (NEGATIVE); Cocaine Screen, Urine NEGATIVE (NEGATIVE); Opiate Scree,Urine NEGATIVE (NEGATIVE); Phencyclidine Screen, Urine NEGATIVE (NEGATIVE)
[2020-07-12 14:08] VITALS: BP 104/70
[2020-07-12 14:52] VITALS: BP 104/70
== END 2020-07-12 15:41 | disposition home or self-care (01) | DRG 207 ==
LOC: ER 13:58 → EDBD 13:58 → TELE 16:49 → TELE-WESTW 22:22
PROVIDERS: ADMIT Nurse Practitioner Acute Care; ATTEND Internal Medicine Nephrology
DX: R00.2 Palpitations (principal); I50.22 Chronic systolic (congestive) heart failure; I42.8 Other cardiomyopathies; I11.0 Hypertensive heart disease with heart failure; I48.0 Paroxysmal atrial fibrillation; E05.90 Thyrotoxicosis, unspecified without thyrotoxic crisis or storm; F12.10 Cannabis abuse, uncomplicated; F41.9 Anxiety disorder, unspecified; Z20.822 Contact with and (suspected) exposure to COVID-19; Z79.01 Long term (current) use of anticoagulants; Z79.899 Other long term (current) drug therapy; Z80.1 Family history of malignant neoplasm of trachea, bronchus and lung; Z80.8 Family history of malignant neoplasm of other organs or systems; Z82.49 Family history of ischemic heart disease and other diseases of the circulatory system; Z83.3 Family history of diabetes mellitus
CPT/HCPCS: 36415; 71045; 76536; 80053; 80307; 81001; 83735; 83880; 84443; 84484; 85025; 85379; 87426; 93005; 93306; 99291; G0378

== ENCOUNTER 2021-01-27 17:13 | Emergency (ER) | payer MEDICAID ==
[~2021-01-27] VITALS: Ht 182.9 cm; Wt 86.2 kg
[~2021-01-27 17:13] MED LIST changes: -APIX5TAB PO; -FURO1TAB33 PO; +LISI-275 PO; -METH5TAB68 PO; -METO-6 PO; -SACU1TAB PO
[2021-01-27 17:26] VITALS: BP 147/99
[2021-01-27 18:50] LABS: Basophils # (auto) 0 10 ^3/uL (0-0.2); Basophils % (auto) 0.4 % (0.0-2.0); Eosinophils # (auto) 0.2 10 ^3/uL (0-0.8); Eosinophils % (auto) 2.3 % (0.0-7.0); Hematocrit 48.9 % (41.0-53.0); Hemoglobin 16.3 g/dL (13.5-17.5); Lymphocytes # (auto) 2.5 10 ^3/uL (0.4-5.4); Lymphocytes % (auto) 27.4 % (10.0-50.0); Mean Corpuscular Hemoglobin 28.7 pg (28.0-32.0); Mean Corpuscular Hgb Conc. 33.4 g/dL (32.0-36.0); Monocytes # (auto) 0.7 10 ^3/uL (0-1.3); Monocytes % (auto) 8.2 % (0.0-12.0); Neutrophils # (auto) 5.6 10 ^3/uL (1.6-8.6); Neutrophils % (auto) 61.7 % (37.0-80.0); Nucleated Red Blood Cells % 0.1 %; Red Blood Cells 5.68 10^6/uL (4.5-5.90); Red Cell Distribution Width 13.5 % (11.8-14.3)
[2021-01-27 19:05] LABS: Albumin 4.1 g/dL (3.4-5.0); Calcium 9.4 mg/dL (8.5-10.1); Magnesium 2.3 mg/dL (1.6-2.6); Potassium 3.7 mmol/L (3.5-5.1)
[2021-01-27 19:10] LABS: BUN/Creatinine Ratio 23.5; Bilirubin, Total 0.9 mg/dL (0.2-1.0)
== END 2021-01-27 22:45 | disposition home or self-care (01) ==
LOC: ER 17:13
DX: R00.2 Palpitations (principal); I11.0 Hypertensive heart disease with heart failure; I50.9 Heart failure, unspecified; I48.91 Unspecified atrial fibrillation; F12.10 Cannabis abuse, uncomplicated
CPT/HCPCS: 36415; 71046; 80053; 83735; 83880; 84484; 85025; 93005

== ENCOUNTER → 2021-04-17 | Outpatient (CLI) | payer MEDICAID ==
[~2021-04-17] VITALS: Ht 182.9 cm; Wt 90.7 kg
== END | disposition home or self-care (01) ==
LOC: Rad HDHVI 12:59
PROVIDERS: ATTEND Internal Medicine Cardiovascular Disease
DX: I42.0 Dilated cardiomyopathy (principal); I48.0 Paroxysmal atrial fibrillation
CPT/HCPCS: 78452; 93017; 96374; A9500

== ENCOUNTER → 2021-04-19 | Outpatient (CLI) | payer MEDICAID | END | disposition home or self-care (01) | LOC: Rad HDHVI 14:00 | PROVIDERS: ATTEND Internal Medicine Cardiovascular Disease | DX: R00.1 Bradycardia, unspecified (principal); R00.2 Palpitations | CPT/HCPCS: 93306 ==